=== PATIENT | female | born 1930 | race Caucasian/White ===

== ENCOUNTER 2017-03-04 11:04 | Inpatient (IN) | payer MEDICARE ==
[~2017-03-04] VITALS: Ht 167.6 cm; Wt 106.6 kg
[2017-03-04] MEDS ORDERED: ONDANSETRON HCL INJ 2 MG/ML VIAL IV STA (13:26)
[2017-03-04] MEDS ORDERED: SODIUM CHLORIDE 0.9% 1000ML 1,000 ML IV STA (13:26)
[2017-03-04] MEDS ORDERED: MORPHINE SULFATE 2 MG/ML SYR IV STA (13:26)
[2017-03-04 13:55] LABS: BASOPHILS % 0.2 % (0.0-1.0); EOSINOPHILS # (AUTO) 0.1 (0.0-0.4); EOSINOPHILS % 0.6 % (0.0-6.0); HEMATOCRIT 34.5 % (34.2-44.1); HEMOGLOBIN 10.8 g/dL (12.0-16.0); LYMPHOCYTES # (AUTO) 0.8 (1.0-3.2); MEAN CORPUSCULAR HEMOGLOBIN 30.3 pg (28-32); MEAN CORPUSCULAR HGB CONC 31.3 g/dL (31-35); MEAN CORPUSCULAR VOLUME 96.6 fL (81-99); MONOCYTES # (AUTO) 0.8 (0.2-0.8); MONOCYTES % 8.8 % (4.4-11.3); NEUTROPHILS % 80.8 % (38.7-80.0); PLATELET COUNT 171 x10e3/uL (140-360); RED BLOOD COUNT 3.57 x10e6/uL (3.6-5.1); RED CELL DISTRIBUTION WIDTH 13.2 % (11.7-14.4)
[2017-03-04 14:11] LABS: INR 1.39; PROTHROMBIN TIME 17.8 seconds (11.9-14.5)
[2017-03-04 14:17] LABS: ALBUMIN 2.9 g/dL (3.5-5.0); ALBUMIN/GLOBULIN RATIO 0.5 (0.8-2.0); ANION GAP 15.9 mmol/L (8-16); CALCIUM 9.2 mg/dL (8.4-10.2); CREATININE, SERUM 1.33 mg/dL (0.57-1.11); POTASSIUM 5.9 mmol/L (3.5-5.1)
[2017-03-04 14:35] LABS: BILIRUBIN,URINE NEGATIVE (NEGATIVE); CLARITY,URINE HAZY (CLEAR); COLOR,URINE YELLOW (YELLOW); KETONES,URINE 1+ (NEGATIVE); LEUKOCYTE ESTERASE ,URINE 1+ (NEGATIVE); NITRITE,URINE POSITIVE (NEGATIVE); PROTEIN,URINE DIPSTICK 1+ (NEGATIVE); URINE UROBILINOGEN 0.2 mg/dL (0.2 - 1)
[2017-03-04 14:42] LABS: BACTERIA,URINE MANY /HPF; EPITHELIAL CELLS,URINE FEW /LPF
--- NOTE | 2017-03-04 14:46 | Diagnostic Imaging Report ---
Portable chest x-ray CPT code 18263 INDICATION: Cough, fever COMPARISON: None FINDINGS: Frontal view of the chest obtained at 1350 hours. The cardiac silhouette is enlarged. The pulmonary arteries are enlarged. The central pulmonary vascular marking are prominent. The lungs demonstrate no mass or infiltrate. There is eventration of the right diaphragm. The costophrenic angles are sharp. There is no pneumothorax. The osseous structures are intact and normal in morphology. IMPRESSION: 1. Cardiomegaly and pulmonary artery enlargement suggestive of pulmonary artery hypertension. 2. No pulmonary infiltrates. 3. 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 Signed by: Dr. Adán Trammell MD on 03/04/2017 2:42 PM
[2017-03-04] MEDS ORDERED: CEFTRIAXONE SOD 1 GM VIAL IV ONE (15:15)
[2017-03-04] MEDS ORDERED: SOD POLYSTYRENE SULFONATE SUSP 15 GM/60 ML BTL PO ONE (15:45)
[2017-03-04] MEDS ORDERED: DEXTROSE 50% SYRINGE 50 ML IV PRN (15:45)
[2017-03-04] MEDS ORDERED: CEFTRIAXONE SOD 1 GM VIAL IV SCH (15:45)
[2017-03-04] MEDS: ALBUTEROL/IPRATROPIUM 3 ML NEB NEB SCH ×2 (16:20→19:32)
[2017-03-04] MEDS: AZITHROMYCIN 500MG/NS 250 ML 250 ML IV SCH (16:22)
[2017-03-04] MEDS: INSULIN REGULAR, HUMAN 100 UNIT/1 ML 3ML VIAL SQ SCH ×2 (16:22→21:00)
[2017-03-04] MEDS: SODIUM CHLORIDE 0.9% 1000ML 1,000 ML IV SCH (16:22)
[2017-03-04] MEDS ORDERED: AMLODIPINE BESYL5 MG PO (16:27)
[2017-03-04] MEDS ORDERED: COMBIVENT RESPIM4 GM IH (16:27)
[2017-03-04] MEDS ORDERED: NYSTATIN1 EAC1 (16:27)
[2017-03-04] MEDS ORDERED: NORCO 7.5-3251 EACH PO (16:27)
[2017-03-04] MEDS ORDERED: XARELTO10 MG PO (16:27)
[2017-03-04] MEDS ORDERED: LEVOTHYROXINE100 MCG PO (16:27)
[2017-03-04] MEDS ORDERED: GABAPENTIN400 MG PO (16:27)
[2017-03-04] MEDS ORDERED: GLIPIZIDE5 MG PO (16:27)
[2017-03-04] MEDS ORDERED: DOXAZOSIN MESYLA2 MG PO (16:27)
[2017-03-04] MEDS ORDERED: VENLAFAXINE H37.5 MG PO (16:27)
[2017-03-04] MEDS ORDERED: CARVEDILOL12.5 MG PO (16:27)
[2017-03-04] MEDS ORDERED: CYCLOBENZAPRINE10 MG PO (16:27)
[2017-03-04] MEDS ORDERED: JANUVIA100 MG PO (16:27)
[2017-03-04] MEDS ORDERED: ENULOSE10 GM/15 M (16:27)
[2017-03-04] MEDS ORDERED: FUROSEMIDE40 MG PO (16:27)
[2017-03-04] MEDS: OSELTAMIVIR PHOSPHATE 75 MG CAP PO SCH (16:31)
[2017-03-04] MEDS ORDERED: ACETAMINOPHEN 325 MG TAB PO PRN (16:45)
[2017-03-04 17:05] VITALS: BP 119/57
[2017-03-04 17:23] VITALS: BP 119/57
[2017-03-04 17:27] VITALS: BP 119/57
[2017-03-04] MEDS: ONDANSETRON HCL INJ 2 MG/ML VIAL IV PRN (18:35)
[2017-03-04] MEDS: MORPHINE SULFATE 5 MG/ML VIAL IV PRN (18:35)
[2017-03-04 20:47] VITALS: BP 129/58
[2017-03-05] VITALS (7 sets, daily range): BP systolic 93–129; BP diastolic 52–66
[2017-03-05] MEDS: ALBUTEROL/IPRATROPIUM 3 ML NEB NEB SCH ×4 (00:30→19:00)
[2017-03-05] MEDS: ONDANSETRON HCL INJ 2 MG/ML VIAL IV PRN (01:05)
[2017-03-05] MEDS: MORPHINE SULFATE 5 MG/ML VIAL IV PRN (01:05)
[2017-03-05] MEDS: SODIUM CHLORIDE 0.9% 1000ML 1,000 ML IV SCH (01:05)
[2017-03-05 06:27] LABS: BASOPHILS % 0.2 % (0.0-1.0); EOSINOPHILS # (AUTO) 0.1 (0.0-0.4); EOSINOPHILS % 1.7 % (0.0-6.0); HEMATOCRIT 31.8 % (34.2-44.1); HEMOGLOBIN 9.5 g/dL (12.0-16.0); LYMPHOCYTES % 17.3 % (18.0-39.1); MEAN CORPUSCULAR HEMOGLOBIN 29.5 pg (28-32); MEAN CORPUSCULAR HGB CONC 29.9 g/dL (31-35); MEAN CORPUSCULAR VOLUME 98.8 fL (81-99); MONOCYTES # (AUTO) 0.8 (0.2-0.8); MONOCYTES % 12.5 % (4.4-11.3); NEUTROPHILS # (AUTO) 4.1 (2.1-6.9); PLATELET COUNT 155 x10e3/uL (140-360); RED BLOOD COUNT 3.22 x10e6/uL (3.6-5.1); RED CELL DISTRIBUTION WIDTH 13.2 % (11.7-14.4)
[2017-03-05] MEDS: INSULIN REGULAR, HUMAN 100 UNIT/1 ML 3ML VIAL SQ SCH ×4 (07:30→21:00)
[2017-03-05 07:33] LABS: ANION GAP 13.1 mmol/L (8-16); CALCIUM 8.1 mg/dL (8.4-10.2); CREATININE, SERUM 1.25 mg/dL (0.57-1.11); POTASSIUM 4.1 mmol/L (3.5-5.1)
[2017-03-05] MEDS ORDERED: RIVAROXABAN 10 MG TABLET PO SCH (09:00)
[2017-03-05] MEDS ORDERED: GLIPIZIDE 5 MG TAB PO SCH (09:00)
[2017-03-05] MEDS: PANTOPRAZOLE SOD 40 MG TABEC PO SCH (09:10)
[2017-03-05] MEDS: CARVEDILOL 12.5 MG TAB PO SCH ×2 (09:11→22:03)
[2017-03-05] MEDS: SITAGLIPTIN 100 MG TAB PO SCH (09:11)
[2017-03-05] MEDS: VENLAFAXINE HCL 37.5 MG TAB PO SCH (09:11)
[2017-03-05] MEDS: LEVOTHYROXINE SODIUM 100 MCG TAB PO SCH (09:11)
[2017-03-05] MEDS: AMLODIPINE BESYLATE 5 MG TAB PO SCH (09:12)
[2017-03-05] MEDS: OSELTAMIVIR PHOSPHATE 75 MG CAP PO SCH ×2 (09:12→17:00)
[2017-03-05] MEDS: GABAPENTIN 400 MG CAP PO SCH (09:12)
[2017-03-05] MEDS: HYDROCODONE/APAP 7.5MG-325MG 1 EA TAB PO PRN (09:12)
[2017-03-05] MEDS ORDERED: FUROSEMIDE 40 MG TAB PO SCH (15:30)
[2017-03-05] MEDS: GUAIFENESIN 600MG/DEXTROMETHORPHAN 30MG TABSR PO SCH (16:00)
[2017-03-05] MEDS: FUROSEMIDE 20 MG TAB PO SCH (16:00)
[2017-03-05] MEDS: AZITHROMYCIN 500MG/NS 250 ML 250 ML IV SCH (16:15)
[2017-03-05] MEDS: METOCLOPRAMIDE HCL 10 MG TAB PO SCH (16:30)
--- NOTE | 2017-03-05 16:36 | History and Physical ---
PRIMARY CARE PROVIDER: Dr. Satish Guzman. CHIEF COMPLAINT: Shortness of breath and cough. HISTORY OF PRESENT ILLNESS: Ms. Tobar is an 86-year-old lady who has had increasing shortness of breath and cough over the last 2 days. She was just recently discharged from rehab after 30 days in SNF. She was discharged 2 days ago. REVIEW OF SYSTEMS: She denies fever, chills or weight loss. She denies sinus congestion or sore throat. She denies chest pain or palpitations. She has shortness of breath and cough with some sputum production. She denies abdominal pain, nausea and vomiting. She denies dysuria or flank pain. She denies rash or pruritus. She has pain in the left hip. She denies bleeding or bruising. She denies headache, vertigo or loss of consciousness. She denies depression, agitation, homicidal or suicidal ideation. PAST MEDICAL HISTORY: Significant for longstanding hypertension, type 2 diabetes, chronic atrial fibrillation, chronic systolic heart failure, chronic kidney disease stage 3, and asthma/COPD. She has a distant history of cholecystectomy. SHE HAS A STATED ALLERGY TO PENICILLIN AND NONSTEROIDAL ANTI-INFLAMMATORY DRUGS. FAMILY HISTORY: Remarkable for hypertension and diabetes. SOCIAL HISTORY: The patient is . She does not smoke, drink or use illegal drugs, and she is generally independently functioning although she uses a wheelchair mostly for transportation and she does require some assistance and supervision from a provider. PHYSICAL EXAMINATION: PSYCHIATRIC: She is alert and oriented times 3 with normal mood and affect. CONSTITUTIONAL: She is morbidly obese. Is in no acute distress. VITAL SIGNS: Blood pressure 110/61. Pulse 84 and regular. Respiratory rate 17. O2 sat 94%. Temperature 97.2. Her initial temperature on admission was 99.7, her initial blood pressure on admission 104/74 and her pulse rate on admission 120 and irregular. HEENT: Her head is atraumatic. Her eyes are anicteric with clear conjunctivae. Ears and nares are without erythema or discharge. Oropharynx is clear. NECK: Is supple with no mass or thyromegaly. LYMPHATIC SYSTEM: She has no palpable cervical, axillary or inguinal adenopathy. CARDIOVASCULAR: Her heart has an irregular but fairly regular rhythm with no murmur or extra heart sound. She has no carotid bruit. She has a trace of bipedal edema and weak dorsal pedal pulses. RESPIRATORY: Lungs reveal some coarse breath sounds and a bronchitic cough. There is no wheezing, and she has normal respiratory effort. GASTROINTESTINAL: Her abdomen is soft without organomegaly, masses or tenderness. She has normal bowel sounds present. CUTANEOUS: Her skin is warm and dry to the touch with no rash or skin breakdown. MUSCULOSKELETAL: Her joints are in normal alignment without erythema or swelling. She has no calf tenderness. NEUROLOGIC: Exam is nonfocal with intact cranial nerves and no motor or sensory deficits. DIAGNOSTIC STUDIES: Chest x-ray shows cardiomegaly, pulmonary hypertension based on enlarged pulmonary arteries and elevated right hemidiaphragm. Her urine contained 6-10 red cells, 11-20 white cells, and the culture is growing 50 to 100 thousand gram-negative rods, and her influenza A screen was positive. Her TSH is 0.969. Her chemistry shows a potassium of 5.9. The rest of her electrolytes are normal. CO2 30. Glucose 170. Creatinine 1.33, BUN 23 for a GFR of 38, and calcium is 9.2. After some Kayexalate and overnight hydration, chemistry shows normal electrolytes. CO2 29. Creatinine 1.25, BUN 25 for a GFR of 41. Calcium is 8.1. Glucose is 78. Transaminases, bilirubin and alk phos are normal. CBC shows a white count of 6.01 with a normal differential, hemoglobin 9.5, hematocrit 31.8 and platelet count 155,000. IMPRESSION AND PLAN: 1. Generalized weakness most likely due to the upper respiratory infection and flu. Will get PT/OT involved to start the patient immediately on some therapy so she does not get weak while she is here in the hospital. After being in rehab for 30 days, we do not want to lose any ground on that. 2. Upper respiratory infection/influenza. The patient has been started on Tamiflu 75 twice a day for 5 days. We will also give the patient IV Zithromax and Rocephin as well as nebulizer treatments and Mucinex DM. 3. Diabetic foot ulcer left foot. The patient has been followed by Podiatry. Will consult them and continue wound care. 4. Hypertension complicated by coronary artery disease, congestive heart failure and chronic kidney disease stage 3. The patient will continue on Norvasc, Coreg and Lasix. Note she has chronic systolic CHF. 5. Type 2 diabetes complicated by chronic kidney disease stage 3. Will continue her Januvia plus sliding-scale insulin. 6. Chronic atrial fibrillation. Will continue the Coreg and Xarelto. 7. For prophylaxis, the patient is on Protonix for GI prophylaxis and Xarelto for her AFib and for DVT and stroke prophylaxis. Job#: [id number] EV
--- NOTE | 2017-03-05 18:46 | Consultation ---
DATE OF CONSULTATION: March 05, 2017 REASON FOR CONSULTATION: Multiple ulcerations to both lower extremities with the patient being a type 2 diabetic. HISTORY OF PRESENT ILLNESS: This is an 86-year-old white lady who was seen at the bedside accompanied by some somewhat confused secondary to just receiving a pain medication. Patient was admitted secondary to increased shortness of breath and flu-like symptoms. Has had multiple ulcerations to both lower extremities that developed from being at the rehab center from being bedbound. CURRENT MEDICATIONS: Not listed in the chart. ALLERGIES: PENICILLIN AND NONSTEROIDAL ANTI-INFLAMMATORIES. PAST SURGICAL HISTORY: Unobtainable. FAMILY HISTORY: Remarkable for diabetes and hypertension. SOCIAL HISTORY: No smoking, drinking or drug use according to the son. REVIEW OF SYSTEMS: Also unobtainable. PHYSICAL EXAMINATION VITALS: Afebrile, pulse rate 97, respirations 17, blood pressure 112/56, and O2 saturation 98%. PODIATRIC PHYSICAL EXAMINATION VASCULAR: Pedal pulses, dorsalis pedis and posterior tibial arteries are palpable, but diminished. CFT of 12 toes less than 4 seconds. Skin temperature warm to touch. NEUROLOGICAL: Reveals some loss of protective sensation when utilizing Up-Toi monofilament. Muscle mass is symmetrical and wasted. Muscle strength 3-4/5 to all muscle groups. DERMATOLOGICAL: Shows a grade 2 ulcer of the lateral aspect of the right talotibial joint underlying the lateral aspect of the fibula. No bone or tendon exposed. Measuring approximately 1 to 1.5 cm in diameter with granular fibrotic base noted. Had an ulcer to the posterior plantar aspect of the left heel measuring 2 to 3.5 cm in diameter with superficial necrosis noted. An ulceration of the lateral aspect of the 5th metatarsophalangeal joint with periwound cellulitis present of 1.5 to 2 cm in diameter. ASSESSMENT: Multiple grade 1 and 2 ulcerations to both lower extremities with diabetic neuropathy. PLAN: Will start with Bactroban ointment followed by Xeroform dressing. Continue pillow under calf to offload as best as possible. Continue 1 g of ceftriaxone every 24 hours. Will continue to follow. LABS: Noted. Has a white blood cell count of 6, hemoglobin 9.5, hematocrit 31.8 with a platelet count of 155,000. Job#: [id number] RI
[2017-03-05] MEDS: CEFTRIAXONE SOD 1 GM VIAL IV SCH (19:09)
[2017-03-06] VITALS (9 sets, daily range): BP systolic 101–127; BP diastolic 50–72
[2017-03-06] MEDS: GUAIFENESIN 600MG/DEXTROMETHORPHAN 30MG TABSR PO SCH ×4 (00:01→17:26)
[2017-03-06] MEDS: HYDROCODONE/APAP 7.5MG-325MG 1 EA TAB PO PRN (00:07)
[2017-03-06] MEDS: ALBUTEROL/IPRATROPIUM 3 ML NEB NEB SCH ×4 (00:30→19:40)
[2017-03-06 06:52] LABS: BASOPHILS % 0.2 % (0.0-1.0); EOSINOPHILS # (AUTO) 0.2 (0.0-0.4); EOSINOPHILS % 4.2 % (0.0-6.0); HEMATOCRIT 30.3 % (34.2-44.1); HEMOGLOBIN 9.1 g/dL (12.0-16.0); LYMPHOCYTES # (AUTO) 1.4 (1.0-3.2); MEAN CORPUSCULAR HEMOGLOBIN 29.4 pg (28-32); MEAN CORPUSCULAR VOLUME 98.1 fL (81-99); MONOCYTES # (AUTO) 0.6 (0.2-0.8); MONOCYTES % 10.5 % (4.4-11.3); NEUTROPHILS # (AUTO) 3.2 (2.1-6.9); NEUTROPHILS % 59.5 % (38.7-80.0); PLATELET COUNT 153 x10e3/uL (140-360); RED BLOOD COUNT 3.09 x10e6/uL (3.6-5.1); RED CELL DISTRIBUTION WIDTH 13.2 % (11.7-14.4)
[2017-03-06 07:10] LABS: CALCIUM 7.9 mg/dL (8.4-10.2); CREATININE, SERUM 1.37 mg/dL (0.57-1.11); MAGNESIUM 1.7 MG/DL (1.3-2.1)
[2017-03-06 07:28] LABS: THYROID STIMULATING HORMONE 1.633 uIU/mL (0.350-4.940)
[2017-03-06] MEDS: LEVOTHYROXINE SODIUM 100 MCG TAB PO SCH (07:30)
[2017-03-06] MEDS: INSULIN REGULAR, HUMAN 100 UNIT/1 ML 3ML VIAL SQ SCH ×4 (07:30→20:36)
[2017-03-06] MEDS: AMLODIPINE BESYLATE 5 MG TAB PO SCH (09:00)
[2017-03-06] MEDS ORDERED: COLLAGENASE OINTMENT 30 GM TUBE TP SCH (09:00)
--- NOTE | 2017-03-06 09:34 | Progress Note ---
DATE: March 06, 2017 SUBJECTIVE: Patient seen at bedside, accompanied by daughter. Doing well. Denies any history of fever, chills, nausea, vomiting. OBJECTIVE: VITAL SIGNS: Afebrile. Pulse rate 90, respirations 16, blood pressure 111/59, O2 saturation at 96%. EXTREMITIES: Ulcerations to both lower extremities improving. Decreased cellulitis. Decreased periwound cellulitis. No drainage. Negative foul smell. LABS: Noted. Has a white blood cell count of 5.4, hemoglobin 9.1, hematocrit 30.3 with a platelet count 153,000. ASSESSMENT: Multiple grade 1 and 2 ulcers to both lower extremities with diabetic neuropathy. PLAN: Will continue Bactroban ointment, followed by light dry dressing. Continue offloading with pillow under calves. Will continue to follow. Job#: [id number]
[2017-03-06] MEDS: OSELTAMIVIR PHOSPHATE 75 MG CAP PO SCH ×2 (09:42→17:26)
[2017-03-06] MEDS: SITAGLIPTIN 100 MG TAB PO SCH (09:42)
[2017-03-06] MEDS: PANTOPRAZOLE SOD 40 MG TABEC PO SCH (09:42)
[2017-03-06] MEDS: GABAPENTIN 400 MG CAP PO SCH (09:42)
[2017-03-06] MEDS: RIVAROXABAN 15 MG TABLET PO SCH (09:42)
[2017-03-06] MEDS: CARVEDILOL 12.5 MG TAB PO SCH ×2 (09:42→20:39)
[2017-03-06] MEDS: GLIPIZIDE 5 MG TAB PO SCH (09:42)
[2017-03-06] MEDS: METOCLOPRAMIDE HCL 10 MG TAB PO SCH ×2 (09:42→15:50)
[2017-03-06] MEDS: VENLAFAXINE HCL 37.5 MG TAB PO SCH (09:42)
[2017-03-06] MEDS ORDERED: POTASSIUM CHLORIDE 20 MEQ TAB CR PO STA (10:09)
[2017-03-06] MEDS ORDERED: FUROSEMIDE INJ 10 MG/ML 2 ML VIAL IV ONE (10:15)
[2017-03-06] MEDS: FUROSEMIDE 20 MG TAB PO SCH (11:56)
[2017-03-06] MEDS: COLLAGENASE 5 GM TUBE TP SCH (15:34)
[2017-03-06] MEDS: CEFTRIAXONE SOD 1 GM VIAL IV SCH (15:50)
[2017-03-06] MEDS: AZITHROMYCIN 500MG/NS 250 ML 250 ML IV SCH (15:50)
[2017-03-06] MEDS ORDERED: DEXTROSE 5% 1000ML 1,000 ML IV ONE (22:15)
[2017-03-07] VITALS (7 sets, daily range): BP systolic 116–124; BP diastolic 65–87
[2017-03-07] MEDS: GUAIFENESIN 600MG/DEXTROMETHORPHAN 30MG TABSR PO SCH ×5 (00:33→23:56)
[2017-03-07] MEDS: ALBUTEROL/IPRATROPIUM 3 ML NEB NEB SCH ×2 (01:12→06:45)
[2017-03-07] MEDS: PANTOPRAZOLE SOD 40 MG TABEC PO SCH ×3 (07:30→14:16)
[2017-03-07] MEDS: GLIPIZIDE 5 MG TAB PO SCH (07:30)
[2017-03-07] MEDS: INSULIN REGULAR, HUMAN 100 UNIT/1 ML 3ML VIAL SQ SCH ×4 (07:30→20:43)
[2017-03-07 07:57] LABS: BASOPHILS % 0.2 % (0.0-1.0); EOSINOPHILS # (AUTO) 0.2 (0.0-0.4); HEMATOCRIT 32.5 % (34.2-44.1); HEMOGLOBIN 9.9 g/dL (12.0-16.0); LYMPHOCYTES # (AUTO) 1.5 (1.0-3.2); LYMPHOCYTES % 25.1 % (18.0-39.1); MEAN CORPUSCULAR HEMOGLOBIN 29.6 pg (28-32); MEAN CORPUSCULAR HGB CONC 30.5 g/dL (31-35); MEAN CORPUSCULAR VOLUME 97.3 fL (81-99); MONOCYTES # (AUTO) 0.5 (0.2-0.8); MONOCYTES % 8.3 % (4.4-11.3); NEUTROPHILS # (AUTO) 3.8 (2.1-6.9); NEUTROPHILS % 61.9 % (38.7-80.0); PLATELET COUNT 166 x10e3/uL (140-360); RED BLOOD COUNT 3.34 x10e6/uL (3.6-5.1); RED CELL DISTRIBUTION WIDTH 13.1 % (11.7-14.4)
[2017-03-07 08:35] LABS: ANION GAP 12.1 mmol/L (8-16); CALCIUM 8.2 mg/dL (8.4-10.2); CREATININE, SERUM 1.31 mg/dL (0.57-1.11); POTASSIUM 4.1 mmol/L (3.5-5.1)
[2017-03-07] MEDS: METOCLOPRAMIDE HCL 10 MG TAB PO SCH ×3 (08:45→17:34)
[2017-03-07] MEDS: VENLAFAXINE HCL 37.5 MG TAB PO SCH ×2 (08:45→14:16)
[2017-03-07] MEDS: LEVOTHYROXINE SODIUM 100 MCG TAB PO SCH ×2 (08:45→14:16)
[2017-03-07] MEDS: CARVEDILOL 12.5 MG TAB PO SCH ×3 (08:45→20:45)
[2017-03-07] MEDS: COLLAGENASE 5 GM TUBE TP SCH ×2 (08:46→10:36)
[2017-03-07] MEDS: RIVAROXABAN 15 MG TABLET PO SCH ×2 (08:46→14:16)
[2017-03-07] MEDS: SITAGLIPTIN 100 MG TAB PO SCH (08:46)
[2017-03-07] MEDS: AMLODIPINE BESYLATE 5 MG TAB PO SCH ×2 (08:46→14:16)
[2017-03-07] MEDS: OSELTAMIVIR PHOSPHATE 75 MG CAP PO SCH ×3 (08:46→20:44)
[2017-03-07] MEDS: GABAPENTIN 400 MG CAP PO SCH ×2 (08:46→14:16)
[2017-03-07] MEDS ORDERED: POTASSIUM CHLORIDE 20 MEQ TAB CR PO STA (09:09)
[2017-03-07] MEDS ORDERED: ALBUTEROL/IPRATROPIUM 3 ML NEB NEB PRN (09:15)
[2017-03-07] MEDS ORDERED: FUROSEMIDE INJ 10 MG/ML 4 ML VIAL IV ONE (09:15)
--- NOTE | 2017-03-07 09:41 | Progress Note ---
DATE: March 07, 2017 SUBJECTIVE: Patient seen at bedside accompanied by daughter, having difficulty breathing secondary to mucus. OBJECTIVE: Vitals: Afebrile. Pulse rate 103. Respirations 20. Blood pressure 120/84. O2 saturation 99%. Ulcerations to both lower extremities improving slowly. Decreased periwound cellulitis. Negative foul smell. Pedal pulses are palpable. Skin temperature warm to touch. ASSESSMENT: Multiple grade-2 ulcerations to both lower extremities healing slowly. PLAN: Will continue Bactroban followed by dilute wet-to-dry Betadine and dry dressing. Continue offloading. Continue IV antibiotics. Will continue to follow. Job#: [id number]
[2017-03-07] MEDS: ACETYLCYSTEINE 20% INHAL SOLN 30 ML VIAL INH SCH ×4 (11:30→23:30)
[2017-03-07] MEDS ORDERED: LEVALBUTEROL HCL SOLN NEBU 0.63 MG/3 ML NEB INH PRN (12:00)
[2017-03-07] MEDS: LEVALBUTEROL HCL SOLN NEBU 0.63 MG/3 ML NEB INH SCH ×3 (12:38→23:00)
[2017-03-07] MEDS ORDERED: BISACODYL 5 MG TAB EC PO ONE (13:45)
[2017-03-07] MEDS ORDERED: ALBUTEROL/IPRATROPIUM 3 ML NEB NEB SCH (14:00)
--- NOTE | 2017-03-07 14:10 | Diagnostic Imaging Report ---
PROCEDURE: CHEST SINGLE (PORTABLE) COMPARISON: 03/04/2017. INDICATIONS: INFLUENZA, RESPIRATORY DISTRESS FINDINGS: Lungs remain well-inflated and without focal consolidation, pleural effusion, or pneumothorax. Stable cardiomediastinal contour with mild enlargement of the cardiac silhouette and central pulmonary arteries. No acute osseous abnormality. CONCLUSION: Stable cardiomegaly with enlargement of the central pulmonary arteries. No new consolidations. Dictated by: Parish Gamez M.D. on 03/07/2017 at 14:18 Electronically approved by: Parish Gamez M.D. on 03/07/2017 at 14:18
[2017-03-07] MEDS: FUROSEMIDE 20 MG TAB PO SCH (14:16)
[2017-03-07] MEDS: CEFTRIAXONE SOD 1 GM VIAL IV SCH (15:14)
[2017-03-07] MEDS: AZITHROMYCIN 500MG/NS 250 ML 250 ML IV SCH (16:00)
[2017-03-07] MEDS: DOCUSATE SODIUM LIQD 100 MG/10 ML UDC NG SCH (17:34)
[2017-03-07 22:14] LABS: BILIRUBIN,URINE NEGATIVE (NEGATIVE); CLARITY,URINE HAZY (CLEAR); COLOR,URINE YELLOW (YELLOW); KETONES,URINE NEGATIVE (NEGATIVE); LEUKOCYTE ESTERASE ,URINE 2+ (NEGATIVE); NITRITE,URINE NEGATIVE (NEGATIVE); URINE UROBILINOGEN 0.2 mg/dL (0.2 - 1)
[2017-03-07 22:16] LABS: PROTEIN,URINE DIPSTICK 2+ (NEGATIVE)
[2017-03-07 22:26] LABS: BACTERIA,URINE MANY /HPF; RBC,URINE 21-50 /HPF (0-5); WBC,URINE (MAN) >50 /HPF (0-5)
[2017-03-08] VITALS (7 sets, daily range): BP systolic 124–132; BP diastolic 69–79
[2017-03-08] MEDS: LEVALBUTEROL HCL SOLN NEBU 0.63 MG/3 ML NEB INH SCH ×5 (02:15→18:49)
[2017-03-08] MEDS: ACETYLCYSTEINE 20% INHAL SOLN 30 ML VIAL INH SCH ×6 (03:30→18:49)
[2017-03-08] MEDS: GUAIFENESIN 600MG/DEXTROMETHORPHAN 30MG TABSR PO SCH ×4 (05:40→23:29)
[2017-03-08] MEDS: TRAMADOL HCL 50 MG TAB PO PRN (05:45)
[2017-03-08 06:25] LABS: BASOPHILS % 0.3 % (0.0-1.0); EOSINOPHILS # (AUTO) 0.2 (0.0-0.4); EOSINOPHILS % 2.5 % (0.0-6.0); HEMATOCRIT 32.8 % (34.2-44.1); HEMOGLOBIN 10.2 g/dL (12.0-16.0); LYMPHOCYTES # (AUTO) 1.4 (1.0-3.2); LYMPHOCYTES % 22.7 % (18.0-39.1); MEAN CORPUSCULAR HEMOGLOBIN 29.6 pg (28-32); MEAN CORPUSCULAR HGB CONC 31.1 g/dL (31-35); MEAN CORPUSCULAR VOLUME 95.1 fL (81-99); MONOCYTES # (AUTO) 0.5 (0.2-0.8); MONOCYTES % 8.4 % (4.4-11.3); NEUTROPHILS # (AUTO) 3.9 (2.1-6.9); NEUTROPHILS % 65.8 % (38.7-80.0); PLATELET COUNT 176 x10e3/uL (140-360); RED BLOOD COUNT 3.45 x10e6/uL (3.6-5.1); RED CELL DISTRIBUTION WIDTH 12.9 % (11.7-14.4)
[2017-03-08 06:46] LABS: ANION GAP 14.7 mmol/L (8-16); CALCIUM 8.3 mg/dL (8.4-10.2); CREATININE, SERUM 1.08 mg/dL (0.57-1.11); MAGNESIUM 1.2 MG/DL (1.3-2.1); POTASSIUM 3.7 mmol/L (3.5-5.1)
[2017-03-08] MEDS: INSULIN REGULAR, HUMAN 100 UNIT/1 ML 3ML VIAL SQ SCH ×4 (07:30→20:42)
[2017-03-08] MEDS ORDERED: FUROSEMIDE INJ 10 MG/ML 4 ML VIAL IV SCH (08:00)
[2017-03-08] MEDS: PANTOPRAZOLE SOD 40 MG TABEC PO SCH ×2 (08:11→16:29)
[2017-03-08] MEDS: METOCLOPRAMIDE HCL 10 MG TAB PO SCH ×2 (08:11→16:29)
[2017-03-08] MEDS: LEVOTHYROXINE SODIUM 100 MCG TAB PO SCH (08:11)
[2017-03-08] MEDS: GLIPIZIDE 5 MG TAB PO SCH (08:11)
[2017-03-08] MEDS: DOCUSATE SODIUM LIQD 100 MG/10 ML UDC NG SCH ×2 (08:12→16:29)
[2017-03-08] MEDS: FUROSEMIDE INJ 10 MG/ML 4 ML VIAL IV SCH ×3 (08:12→21:50)
[2017-03-08] MEDS: SITAGLIPTIN 100 MG TAB PO SCH (08:12)
[2017-03-08] MEDS: AMLODIPINE BESYLATE 5 MG TAB PO SCH (08:12)
[2017-03-08] MEDS: CARVEDILOL 12.5 MG TAB PO SCH ×2 (08:12→20:42)
[2017-03-08] MEDS: RIVAROXABAN 15 MG TABLET PO SCH (08:12)
[2017-03-08] MEDS: OSELTAMIVIR PHOSPHATE 75 MG CAP PO SCH ×2 (08:12→20:41)
[2017-03-08] MEDS: GABAPENTIN 400 MG CAP PO SCH (08:12)
[2017-03-08] MEDS: VENLAFAXINE HCL 37.5 MG TAB PO SCH (08:12)
[2017-03-08] MEDS: COLLAGENASE 5 GM TUBE TP SCH (08:12)
--- NOTE | 2017-03-08 09:25 | Progress Note ---
DATE: March 08, 2017 SUBJECTIVE: Patient seen at bedside, breathing a little bit better accompanied by daughter. OBJECTIVE: VITAL SIGNS: Afebrile. Pulse rate 90, respirations 16, blood pressure 124/79, O2 saturation 99%. EXTREMITIES: Ulcerations to both lower extremities healing. Decreased periwound cellulitis to dry. No drainage. ASSESSMENT: Multiple grade 2 ulcers healing with diabetic neuropathy. PLAN: Will continue offloading. Continue local wound care. Will continue to follow. Job#: [id number]
[2017-03-08] MEDS ORDERED: FUROSEMIDE 20 MG TAB PO SCH (12:00)
[2017-03-08] MEDS ORDERED: FUROSEMIDE 40 MG TAB PO SCH (12:00)
[2017-03-08] MEDS ORDERED: HYDROCODONE/CHLORPHENIRAMINE 5 ML LIQCR PO SCH (13:15)
[2017-03-08] MEDS ORDERED: LORAZEPAM 0.5 MG TAB PO PRN (13:30)
[2017-03-08] MEDS: TRIMETHOPRIM/SULFAMETHOXAZOLE 160-800 MG TAB PO SCH ×2 (14:11→20:41)
--- NOTE | 2017-03-08 14:30 | Diagnostic Imaging Report ---
PROCEDURE: A single AP view of the chest. COMPARISON: Chest x-ray 03/07/17 and 03/04/2017 INDICATIONS: UPPER RESPIRATORY INFECTION FINDINGS: Frontal image obtained at 1304 hrs. Lines/tubes: None. Lungs: Lung volumes are low. There is a small focus of subsegmental atelectasis or infiltrate inferior right upper lobe. This is stable compared to the most recent prior exam. Crowding of the lung markings in the left lung bases suggestive of atelectasis. Pulmonary vascular markings are prominent but stable. Pleura: There is no pleural effusion or pneumothorax. Heart and mediastinum: Stable cardiomegaly and pulmonary artery enlargement. There is suggestion of calcified hilar lymph nodes. Bones: No acute bony abnormality. IMPRESSION: Inferior right upper lobe subsegmental atelectasis or infiltrate is stable. Stable cardiomegaly. Dictated by: Adán Trammell M.D. on 03/08/2017 at 14:38 Electronically approved by: Adán Trammell M.D. on 03/08/2017 at 14:38
[2017-03-08] MEDS: CEFTRIAXONE SOD 1 GM VIAL IV SCH (15:47)
[2017-03-08] MEDS: AZITHROMYCIN 500MG/NS 250 ML 250 ML IV SCH (16:29)
[2017-03-08] MEDS: BENZONATATE 100 MG CAP PO SCH ×2 (17:47→23:29)
[2017-03-09] VITALS (7 sets, daily range): BP systolic 102–155; BP diastolic 54–98
[2017-03-09] MEDS: HYDROCODONE/APAP 7.5MG-325MG 1 EA TAB PO PRN (01:02)
[2017-03-09] MEDS: LEVALBUTEROL HCL SOLN NEBU 0.63 MG/3 ML NEB INH SCH ×5 (02:06→23:00)
[2017-03-09] MEDS: ACETYLCYSTEINE 20% INHAL SOLN 30 ML VIAL INH SCH ×6 (02:06→23:30)
[2017-03-09] MEDS: GUAIFENESIN 600MG/DEXTROMETHORPHAN 30MG TABSR PO SCH ×3 (05:49→17:49)
[2017-03-09] MEDS: BENZONATATE 100 MG CAP PO SCH ×3 (05:49→17:58)
[2017-03-09] MEDS: FUROSEMIDE INJ 10 MG/ML 4 ML VIAL IV SCH ×4 (06:16→22:41)
[2017-03-09 07:19] LABS: BASOPHILS % 0.1 % (0.0-1.0); EOSINOPHILS # (AUTO) 0.1 (0.0-0.4); EOSINOPHILS % 1.1 % (0.0-6.0); HEMATOCRIT 34.6 % (34.2-44.1); HEMOGLOBIN 10.6 g/dL (12.0-16.0); LYMPHOCYTES # (AUTO) 1.6 (1.0-3.2); LYMPHOCYTES % 20.8 % (18.0-39.1); MEAN CORPUSCULAR HEMOGLOBIN 29.2 pg (28-32); MEAN CORPUSCULAR HGB CONC 30.6 g/dL (31-35); MEAN CORPUSCULAR VOLUME 95.3 fL (81-99); MONOCYTES # (AUTO) 0.6 (0.2-0.8); MONOCYTES % 7.8 % (4.4-11.3); NEUTROPHILS # (AUTO) 5.3 (2.1-6.9); NEUTROPHILS % 69.8 % (38.7-80.0); PLATELET COUNT 211 x10e3/uL (140-360); RED BLOOD COUNT 3.63 x10e6/uL (3.6-5.1)
[2017-03-09] MEDS: INSULIN REGULAR, HUMAN 100 UNIT/1 ML 3ML VIAL SQ SCH ×4 (07:30→20:45)
[2017-03-09 07:50] LABS: ANION GAP 13.6 mmol/L (8-16); CALCIUM 8.5 mg/dL (8.4-10.2); CREATININE, SERUM 1.31 mg/dL (0.57-1.11); POTASSIUM 3.6 mmol/L (3.5-5.1)
--- NOTE | 2017-03-09 07:51 | Diagnostic Imaging Report ---
EXAMINATION: Chest, CHEST SINGLE (PORTABLE) INDICATION: Chest pain COMPARISON: Portable chest 03/08/2017 FINDINGS: LINES: None. Heart: Normal cardiac silhouette. Vascular: The pulmonary vasculature is within normal limits. Atherosclerotic calcifications of the aortic arch. Mediastinum: No mediastinal, hilar, or axillary mass or lymphadenopathy. Lungs: No parenchymal mass. Airspace opacity in the right lung base. Pleura: No pleural effusion. No pneumothorax. Bones: No acute osseous abnormality. Degenerative changes of the thoracic spine. Soft tissues: Normal. Impression: Airspace opacity in the right lung base may represent atelectasis or developing pneumonia. Signed by: Dr. Arcenio Templeton M.D. on 03/09/2017 7:47 AM
[2017-03-09] MEDS: GLIPIZIDE 5 MG TAB PO SCH (07:56)
[2017-03-09] MEDS: METOCLOPRAMIDE HCL 10 MG TAB PO SCH ×2 (07:57→17:49)
[2017-03-09] MEDS: LEVOTHYROXINE SODIUM 100 MCG TAB PO SCH (07:57)
[2017-03-09] MEDS: PANTOPRAZOLE SOD 40 MG TABEC PO SCH ×2 (07:57→17:48)
[2017-03-09] MEDS: TRIMETHOPRIM/SULFAMETHOXAZOLE 160-800 MG TAB PO SCH ×2 (09:50→21:46)
[2017-03-09] MEDS: DOCUSATE SODIUM LIQD 100 MG/10 ML UDC NG SCH ×3 (09:50→17:48)
[2017-03-09] MEDS: SITAGLIPTIN 100 MG TAB PO SCH (09:53)
[2017-03-09] MEDS: CARVEDILOL 12.5 MG TAB PO SCH ×2 (09:53→21:46)
[2017-03-09] MEDS: AMLODIPINE BESYLATE 5 MG TAB PO SCH (09:54)
[2017-03-09] MEDS: OSELTAMIVIR PHOSPHATE 75 MG CAP PO SCH (09:54)
[2017-03-09] MEDS: GABAPENTIN 400 MG CAP PO SCH (09:54)
[2017-03-09] MEDS: VENLAFAXINE HCL 37.5 MG TAB PO SCH (09:54)
[2017-03-09] MEDS: RIVAROXABAN 15 MG TABLET PO SCH (09:54)
[2017-03-09] MEDS: TRAMADOL HCL 50 MG TAB PO PRN ×2 (10:06→17:48)
[2017-03-09] MEDS: COLLAGENASE 5 GM TUBE TP SCH (10:06)
[2017-03-09] MEDS ORDERED: SODIUM CHLORIDE 0.9% 500ML 500 ML IV ONE (11:45)
[2017-03-09] MEDS ORDERED: FUROSEMIDE INJ 10 MG/ML 4 ML VIAL IV ONE ×2 (12:00→18:00)
[2017-03-09] MEDS: CEFTRIAXONE SOD 1 GM VIAL IV SCH (17:43)
[2017-03-09] MEDS: AZITHROMYCIN 500MG/NS 250 ML 250 ML IV SCH (17:43)
[2017-03-10] VITALS (7 sets, daily range): BP systolic 110–132; BP diastolic 53–68
[2017-03-10] MEDS: BENZONATATE 100 MG CAP PO SCH ×4 (00:26→18:20)
[2017-03-10] MEDS: GUAIFENESIN 600MG/DEXTROMETHORPHAN 30MG TABSR PO SCH ×4 (00:26→18:20)
[2017-03-10] MEDS: LEVALBUTEROL HCL SOLN NEBU 0.63 MG/3 ML NEB INH SCH ×6 (02:15→23:05)
[2017-03-10] MEDS: ACETYLCYSTEINE 20% INHAL SOLN 30 ML VIAL INH SCH ×2 (03:30→07:30)
[2017-03-10] MEDS: FUROSEMIDE INJ 10 MG/ML 4 ML VIAL IV SCH ×3 (05:59→22:00)
[2017-03-10] MEDS: INSULIN REGULAR, HUMAN 100 UNIT/1 ML 3ML VIAL SQ SCH ×4 (07:30→21:00)
[2017-03-10 08:47] LABS: BASOPHILS % 0.2 % (0.0-1.0); EOSINOPHILS # (AUTO) 0.2 (0.0-0.4); EOSINOPHILS % 2.1 % (0.0-6.0); HEMATOCRIT 32.8 % (34.2-44.1); LYMPHOCYTES # (AUTO) 1.3 (1.0-3.2); LYMPHOCYTES % 15.8 % (18.0-39.1); MEAN CORPUSCULAR HEMOGLOBIN 29.2 pg (28-32); MEAN CORPUSCULAR HGB CONC 30.5 g/dL (31-35); MEAN CORPUSCULAR VOLUME 95.6 fL (81-99); MONOCYTES # (AUTO) 0.6 (0.2-0.8); MONOCYTES % 7.8 % (4.4-11.3); NEUTROPHILS % 73.7 % (38.7-80.0); PLATELET COUNT 209 x10e3/uL (140-360); RED BLOOD COUNT 3.43 x10e6/uL (3.6-5.1); RED CELL DISTRIBUTION WIDTH 13.1 % (11.7-14.4)
[2017-03-10] MEDS: DOCUSATE SODIUM LIQD 100 MG/10 ML UDC NG SCH ×2 (09:00→18:20)
[2017-03-10 09:14] LABS: ANION GAP 13.4 mmol/L (8-16); CREATININE, SERUM 1.55 mg/dL (0.57-1.11); POTASSIUM 3.4 mmol/L (3.5-5.1)
[2017-03-10] MEDS: GABAPENTIN 400 MG CAP PO SCH (09:30)
[2017-03-10] MEDS: RIVAROXABAN 15 MG TABLET PO SCH (09:30)
[2017-03-10] MEDS: LEVOTHYROXINE SODIUM 100 MCG TAB PO SCH (09:30)
[2017-03-10] MEDS: CARVEDILOL 12.5 MG TAB PO SCH ×2 (09:30→22:00)
[2017-03-10] MEDS: VENLAFAXINE HCL 37.5 MG TAB PO SCH (09:30)
[2017-03-10] MEDS: SITAGLIPTIN 100 MG TAB PO SCH (09:30)
[2017-03-10] MEDS: METOCLOPRAMIDE HCL 10 MG TAB PO SCH ×2 (09:30→18:20)
[2017-03-10] MEDS: TRIMETHOPRIM/SULFAMETHOXAZOLE 160-800 MG TAB PO SCH ×2 (09:30→21:59)
[2017-03-10] MEDS: COLLAGENASE 5 GM TUBE TP SCH (09:30)
[2017-03-10] MEDS: AMLODIPINE BESYLATE 5 MG TAB PO SCH (09:30)
[2017-03-10] MEDS: GLIPIZIDE 5 MG TAB PO SCH (09:30)
[2017-03-10] MEDS: PANTOPRAZOLE SOD 40 MG TABEC PO SCH ×2 (09:30→18:20)
[2017-03-10] MEDS ORDERED: MAGNESIUM SULFATE 2GM/50ML 50 ML IV ONE (10:00)
[2017-03-10] MEDS ORDERED: POTASSIUM CHLORIDE 20 MEQ TAB CR PO ONE (13:00)
[2017-03-10] MEDS: TRAMADOL HCL 50 MG TAB PO PRN (14:15)
[2017-03-10] MEDS: AZITHROMYCIN 500MG/NS 250 ML 250 ML IV SCH (18:19)
[2017-03-10] MEDS: CEFTRIAXONE SOD 1 GM VIAL IV SCH (18:19)
[2017-03-10] MEDS: HYDROCODONE/APAP 7.5MG-325MG 1 EA TAB PO PRN (19:30)
[2017-03-11] VITALS (7 sets, daily range): BP systolic 96–124; BP diastolic 49–68
[2017-03-11] MEDS: BENZONATATE 100 MG CAP PO SCH ×5 (00:23→23:04)
[2017-03-11] MEDS: GUAIFENESIN 600MG/DEXTROMETHORPHAN 30MG TABSR PO SCH ×5 (00:23→23:04)
[2017-03-11] MEDS: LEVALBUTEROL HCL SOLN NEBU 0.63 MG/3 ML NEB INH SCH ×5 (03:30→20:45)
[2017-03-11] MEDS: FUROSEMIDE INJ 10 MG/ML 4 ML VIAL IV SCH ×3 (05:37→21:04)
[2017-03-11 07:25] LABS: BASOPHILS % 0.2 % (0.0-1.0); EOSINOPHILS # (AUTO) 0.2 (0.0-0.4); EOSINOPHILS % 2.4 % (0.0-6.0); HEMATOCRIT 34.6 % (34.2-44.1); HEMOGLOBIN 10.7 g/dL (12.0-16.0); LYMPHOCYTES # (AUTO) 1.4 (1.0-3.2); LYMPHOCYTES % 16.4 % (18.0-39.1); MEAN CORPUSCULAR HEMOGLOBIN 29.5 pg (28-32); MEAN CORPUSCULAR HGB CONC 30.9 g/dL (31-35); MEAN CORPUSCULAR VOLUME 95.3 fL (81-99); MONOCYTES # (AUTO) 0.7 (0.2-0.8); NEUTROPHILS % 72.5 % (38.7-80.0); PLATELET COUNT 218 x10e3/uL (140-360); RED BLOOD COUNT 3.63 x10e6/uL (3.6-5.1); RED CELL DISTRIBUTION WIDTH 13.2 % (11.7-14.4)
[2017-03-11] MEDS: INSULIN REGULAR, HUMAN 100 UNIT/1 ML 3ML VIAL SQ SCH ×4 (07:30→20:44)
--- NOTE | 2017-03-11 07:50 | Progress Note ---
DATE: PCP: Dr. Satish Guzman CONSULTANTS: Dr. Tomas Jimenez CHIEF COMPLAINT: Acute dyspnea, influenza A with upper respiratory infection, cystitis. ALLERGIES: PENICILLIN, NONSTEROIDAL ANTI-INFLAMMATORIES. DIET: ADA diet. SUBJECTIVE: No new issues. Patient's son at bedside. Discussed plan of care with her. Was also given the option of SNF, which she really appreciated. Patient usually stays alone at night, which is probably not good for the patient's condition and age status. Also, discussed Hospice with the patient's son, who was told that his mother is not a candidate for Hospice at this time. OBJECTIVE VITALS: Temperature 98.2, pulse 76, blood pressure 125/60, respirations 18, satting 93%, weight 235, BMI 37.92. GENERAL: Patient is awake and alert. LUNGS: Crackles and occasional scattered wheezes. HEENT: Extraocular muscles are intact. She is hard of hearing. Sclerae is anicteric. NECK: Supple. Trachea midline. CARDIOVASCULAR: Regular rate and rhythm. ABDOMEN: Soft. Bowel sounds present. It is nontender and nondistended. Patient is obese. NEUROLOGIC: Nonfocal. EXTREMITIES: No calf tenderness. No edema. MEDICATIONS: Please see MAR. LABS: Sodium 142, potassium 3.4 and slightly low, chloride 91, CO2 41, BUN 19, creatinine 1.55, glucose 72. White count 8.12, hemoglobin 10, hematocrit 32.8, and platelets 209,000. Magnesium 1 and that was repleted by Dr. Amadeo Rg. DIAGNOSES 1. Weakness: Will continue with physical therapy and occupational therapy. Will get case management to consult for SNF, possibly the [facility] at family request. 2. Upper respiratory infection: Positive flu per previous provider seen from our group. Tamiflu has been completed. Will continue on pulmonary toilette, as well as with antibiotics. 3. Diabetic foot ulcer, left foot: Podiatry is following. 4. Per nurse, the patient has a sacral ulcer, stage 2: Will consult wound care. Patient has a Mtz catheter. She will continue with a Mtz catheter for now. 5. Hypertension with congestive heart failure and chronic kidney disease, stage 3: Creatinine today is 1.55. Will continue to monitor creatinine. 6. Diabetes mellitus, type 2 with chronic kidney disease, stage 3: Patient is on sliding scale. She will continue on sliding scale. Glucose is stable. DICTATED BY JIMY ROMANO NP Job#: [id number] RI
[2017-03-11 07:53] LABS: ANION GAP 15.7 mmol/L (8-16); CALCIUM 8.5 mg/dL (8.4-10.2); CREATININE, SERUM 1.74 mg/dL (0.57-1.11); POTASSIUM 3.7 mmol/L (3.5-5.1)
[2017-03-11 09:02] LABS: MAGNESIUM 1.5 MG/DL (1.3-2.1); PHOSPHORUS 3.5 MG/DL (2.3-4.7)
[2017-03-11] MEDS ORDERED: SODIUM CHLORIDE 0.9% 1000ML 1,000 ML IV SCH (09:15)
[2017-03-11] MEDS: TRIMETHOPRIM/SULFAMETHOXAZOLE 160-800 MG TAB PO SCH ×2 (09:43→20:43)
[2017-03-11] MEDS: DOCUSATE SODIUM LIQD 100 MG/10 ML UDC NG SCH ×2 (09:43→16:56)
[2017-03-11] MEDS: CARVEDILOL 12.5 MG TAB PO SCH ×2 (09:43→20:44)
[2017-03-11] MEDS: GABAPENTIN 400 MG CAP PO SCH (09:43)
[2017-03-11] MEDS: METOCLOPRAMIDE HCL 10 MG TAB PO SCH ×2 (09:43→16:56)
[2017-03-11] MEDS: LEVOTHYROXINE SODIUM 100 MCG TAB PO SCH (09:43)
[2017-03-11] MEDS: RIVAROXABAN 15 MG TABLET PO SCH (09:43)
[2017-03-11] MEDS: GLIPIZIDE 5 MG TAB PO SCH (09:43)
[2017-03-11] MEDS: SITAGLIPTIN 100 MG TAB PO SCH (09:43)
[2017-03-11] MEDS: AMLODIPINE BESYLATE 5 MG TAB PO SCH (09:43)
[2017-03-11] MEDS: VENLAFAXINE HCL 37.5 MG TAB PO SCH (09:43)
[2017-03-11] MEDS: PANTOPRAZOLE SOD 40 MG TABEC PO SCH ×2 (09:43→16:56)
[2017-03-11] MEDS: COLLAGENASE 5 GM TUBE TP SCH (10:26)
--- NOTE | 2017-03-11 10:41 | Progress Note ---
DATE: March 10, 2017 SUBJECTIVE: Patient seen at bedside accompanied by son. Doing well. Decreased pain to both lower extremities. OBJECTIVE: Vitals: Afebrile. Vital signs stable. Ulcerations to both lower extremities continue to improve. Decreased cellulitis. Decreased drainage. ASSESSMENT: Multiple grade-2 ulcers, healing, both lower extremities, with diabetic neuropathy. PLAN: Continue local wound care. Continue offloading. Continue antibiotics. Will continue to follow. Job#: [id number]
[2017-03-11] MEDS: ACETYLCYSTEINE 20% INHAL SOLN 30 ML VIAL INH SCH ×3 (11:00→20:45)
[2017-03-11] MEDS: TRAMADOL HCL 50 MG TAB PO PRN ×2 (11:42→23:00)
[2017-03-11] MEDS: CEFTRIAXONE SOD 1 GM VIAL IV SCH (14:28)
--- NOTE | 2017-03-11 15:30 | Progress Note ---
DATE: March 11, 2017 SUBJECTIVE: Patient seen at bedside with daughter. Decreased pain to both lower extremities. OBJECTIVE VITAL SIGNS: Afebrile. Vital signs stable. EXTREMITIES: Ulceration to the left heel shows some necrosis going down to subcutaneous tissue possibly some muscle, measuring 2.5 to 3 cm in diameter. Ulceration to lateral aspect of right ankle joint healing less than 1.5 cm in diameter with no bone or tendon exposed. Ulceration to the lateral aspect of 5th MPJ also getting better. Pedal pulses are diminished, but skin temperature warm to touch. LABORATORY DATA: Labs noted, has a white blood cell count 8.24, hemoglobin 10.7, and hematocrit 34.6 with a platelet count of 218. ASSESSMENT: Diabetic neuropathy, grade 2/3 ulceration, left heel; grade 2 ulcer, right ankle with a grade 1/2 ulceration lateral aspect fifth metatarsophalangeal joint. PLAN: We will continue offloading, continue planned prescribed medications. Ulcerations to both legs will be debrided. Patient may be transferred to [facility]. We will continue local wound care and IV antibiotics and continue to follow. Job#: [id number] SAK
--- NOTE | 2017-03-11 15:39 | Consultation ---
DATE OF CONSULTATION: March 11, 2017 UROLOGY CONSULTATION REASON FOR CONSULTATION: Urinary retention for 500 mL. HISTORY OF PRESENT ILLNESS: Cheyanne Tobar is an 86-year-old woman who has never seen a urologist before. The patient is currently admitted following flu with multiple medical problems and a Mtz catheter was placed revealing 500 mL of retention and urological consultation was sought. The patient is not sure if it is a true postvoid residual and is not sure if she voided immediately prior to the placement of the Mtz catheter. The patient denies any previous urological surgery. She did not have a cystocele repair in conjunction with her hysterectomy. PAST MEDICAL AND SURGICAL HISTORY 1. Hypertension. 2. Type 2 diabetes mellitus. 3. Chronic atrial fibrillation. 4. Chronic systolic heart failure. 5. Chronic renal insufficiency. 6. Asthma/COPD. 7. Status post cholecystectomy. 8. Status post total vaginal hysterectomy with rectocele repair. FAMILY HISTORY: Significant for kidney cancer in the patient's brother who had a nephrectomy for that disease. It is otherwise remarkable for hypertension and diabetes. SOCIAL HISTORY: The patient denies smoking, alcohol, or drug use. She is a retired nurse. For functionality, she utilizes a motorized wheelchair. She has supportive family at the bedside. CURRENT MEDICATIONS: Please refer to the MAR. ALLERGIES: PLEASE REFER TO THE MAR. REVIEW OF SYSTEMS: As discussed above in the history of present illness and past medical history, otherwise negative for all other systems. PHYSICAL EXAMINATION GENERAL: Somewhat debilitated-appearing elderly woman, lying in bed, in no apparent distress. She is hard of hearing. VITAL SIGNS: She is currently afebrile. Vital signs are currently stable. ABDOMEN: Soft, nondistended, and nontender, without costovertebral angle tenderness. Kidneys not palpable without hepatosplenomegaly. The patient is obese. GENITOURINARY: The patient has a Mtz catheter in place that is draining clear urine out. No evidence of any hematuria at the present time. For the remainder of the physical examination systems, please refer to the admission history and physical on the chart. LABORATORY STUDIES: Urine culture is positive on 3 different occasions within this hospitalization and current urine culture is pending. Hemoglobin is low at 10.7, platelets are normal at 218,000, white blood cell count is normal as well. Creatinine is 1.74. The patient's magnesium and potassium are now normal, but they were both low earlier in this hospitalization as well as the calcium, which has also been normalized. Urinalysis is significant for pyuria and microscopic hematuria. ASSESSMENT 1. Urinary retention. 2. Mtz catheter in place. 3. Urinary tract infections. 4. Anemia. 5. Chronic renal insufficiency. 6. Hypomagnesemia that is improved. 7. Hypocalcemia that is improved. 8. Hypokalemia that is improved. 9. Family history of kidney cancer. 10. Morbid obesity. 11. Microscopic hematuria. PLAN Leave the Mtz catheter in place for now. Agree with sending the patient to the long-term acute care hospital for rehabilitation and improvement of functional status. Ongoing urological followup is a must once the patient is more functional. Hopefully, she will be more functional enough in order to undergo urodynamic study in the office as an outpatient. Interventionally, cystoscopic examination is warranted. Thank you very much for involving us in the care of your patient. I will be happy to follow her along with you as well as in outpatient. Job#: [id number] SAK cc:Dr. Satish Guzman
[2017-03-12] VITALS (8 sets, daily range): BP systolic 111–149; BP diastolic 57–78
[2017-03-12] MEDS: ACETYLCYSTEINE 20% INHAL SOLN 30 ML VIAL INH SCH ×6 (00:30→21:00)
[2017-03-12] MEDS: LEVALBUTEROL HCL SOLN NEBU 0.63 MG/3 ML NEB INH SCH ×6 (00:30→21:00)
[2017-03-12] MEDS: GUAIFENESIN 600MG/DEXTROMETHORPHAN 30MG TABSR PO SCH ×3 (05:27→18:10)
[2017-03-12] MEDS: BENZONATATE 100 MG CAP PO SCH ×3 (05:27→18:10)
[2017-03-12] MEDS: FUROSEMIDE INJ 10 MG/ML 4 ML VIAL IV SCH ×3 (05:27→21:57)
[2017-03-12 07:27] LABS: BASOPHILS % 0.4 % (0.0-1.0); EOSINOPHILS # (AUTO) 0.2 (0.0-0.4); EOSINOPHILS % 3.3 % (0.0-6.0); HEMATOCRIT 32.2 % (34.2-44.1); LYMPHOCYTES # (AUTO) 1.4 (1.0-3.2); LYMPHOCYTES % 18.9 % (18.0-39.1); MEAN CORPUSCULAR HEMOGLOBIN 29.3 pg (28-32); MEAN CORPUSCULAR HGB CONC 31.1 g/dL (31-35); MEAN CORPUSCULAR VOLUME 94.4 fL (81-99); MONOCYTES # (AUTO) 0.6 (0.2-0.8); MONOCYTES % 7.9 % (4.4-11.3); NEUTROPHILS % 68.9 % (38.7-80.0); PLATELET COUNT 241 x10e3/uL (140-360); RED BLOOD COUNT 3.41 x10e6/uL (3.6-5.1)
[2017-03-12] MEDS: INSULIN REGULAR, HUMAN 100 UNIT/1 ML 3ML VIAL SQ SCH ×4 (07:30→21:00)
[2017-03-12 07:57] LABS: ANION GAP 14.9 mmol/L (8-16); CREATININE, SERUM 1.77 mg/dL (0.57-1.11); POTASSIUM 3.9 mmol/L (3.5-5.1)
[2017-03-12] MEDS: RIVAROXABAN 15 MG TABLET PO SCH (09:00)
[2017-03-12] MEDS: GLIPIZIDE 5 MG TAB PO SCH (09:00)
[2017-03-12] MEDS: DOCUSATE SODIUM LIQD 100 MG/10 ML UDC NG SCH ×2 (09:00→17:35)
[2017-03-12] MEDS: AMLODIPINE BESYLATE 5 MG TAB PO SCH (09:00)
[2017-03-12] MEDS: SITAGLIPTIN 100 MG TAB PO SCH (09:00)
[2017-03-12] MEDS: METOCLOPRAMIDE HCL 10 MG TAB PO SCH ×2 (09:00→17:35)
[2017-03-12] MEDS: LEVOTHYROXINE SODIUM 100 MCG TAB PO SCH (09:00)
[2017-03-12] MEDS: VENLAFAXINE HCL 37.5 MG TAB PO SCH (09:00)
[2017-03-12] MEDS: GABAPENTIN 400 MG CAP PO SCH (09:00)
[2017-03-12] MEDS: TRIMETHOPRIM/SULFAMETHOXAZOLE 160-800 MG TAB PO SCH (09:00)
[2017-03-12] MEDS: PANTOPRAZOLE SOD 40 MG TABEC PO SCH ×2 (09:00→17:35)
[2017-03-12] MEDS: CARVEDILOL 12.5 MG TAB PO SCH ×2 (09:01→21:57)
[2017-03-12] MEDS: COLLAGENASE 5 GM TUBE TP SCH (10:49)
--- NOTE | 2017-03-12 15:41 | Consultation ---
DATE OF CONSULTATION: REASON FOR CONSULTATION: Recommendation for antibiotic in a patient with UTI, influenza and multiple wounds. HISTORY OF PRESENT ILLNESS: This is an 86-year-old white female who has history of hypertension, diabetes mellitus, atrial fibrillation, congestive heart failure, obesity, chronic kidney disease. History of cholecystectomy. ALLERGIES: PENICILLIN AND NSAID. The patient comes into the hospital with shortness of breath and cough. Apparently she was recently in rehab and then went to SNF. The patient is coming with fever, cough, shortness of breath, not feeling well. The patient came here. She was found to have influenza A. She was treated. The patient was also found to have multiple wounds, also UTI. The patient is extremely weak. The patient received azithromycin, Tamiflu and Rocephin for 5 days. They plan for her to go to [facility]. Infectious disease was consulted today to make recommendation in terms of antibiotic. Patient has been seen by Dr. Jimenez. She has multiple stage-I and stage-II ulcers on both lower extremities, which she has been getting local care for it by Dr. Jimenez. She was also diagnosed with UTI. PAST MEDICAL HISTORY: As mentioned above, hypertension, diabetes mellitus, neuropathy, chronic atrial fibrillation, congestive heart failure systolic, chronic kidney disease stage 2 to 3, COPD, cholecystectomy, vaginal hysterectomy, rectocele repair. SOCIAL HISTORY: There is no smoking, drug abuse or alcohol abuse. FAMILY HISTORY: Significant for kidney cancer and hypertension. REVIEW OF SYSTEMS GENERAL: Patient has difficulty hearing. She also cannot see well. HEENT: There is no headache or visual changes. GI: No nausea, vomiting, or diarrhea. CARDIAC: No arrhythmia. NEURO: No seizure activity. SKIN: There is no rash. The patient has been on Lasix, Tessalon Perles, Mucinex, Santyl, Coreg, Bactrim DS, Effexor, Neurontin. She was just started on Rocephin. CULTURES: From the urine, she grew Citrobacter, which was resistant to ampicillin and cephalosporin 1st and 2nd generation and 3rd generation. LABS: Sodium 140, potassium 3.9, creatinine 1.77. Her white count is 7.25 and hemoglobin 10. PHYSICAL EXAMINATION GENERAL: She is currently alert and oriented. Does not seem to be in acute distress. VITALS: Stable, currently afebrile. HEENT: She is not icteric. Normocephalic. NECK: Supple. No JVD. No lymphadenopathy. No thyromegaly. CHEST: Clear bilaterally. COR: S1 and S2. No murmur. ABDOMEN: Soft. Bowel sounds present. EXTREMITIES: No edema. She has multiple wounds, old, described in wound care notes. IMPRESSION: Urinary tract infection. Seems to be getting better. Multidrug resistant pathogen. I would suggest to change to meropenem, especially since the patient has chronic kidney disease. Will do meropenem 500 IV q.12 h. Plan on 10 days. Okay to go to LTAC. I am aware of her penicillin allergies. She did well with ceftriaxone. Will follow with you. Job#: [id number]
--- NOTE | 2017-03-12 19:39 | Progress Note ---
DATE: March 12, 2017 SUBJECTIVE: Patient seen at bedside accompanied by [id number], doing better, decreased pain to both lower extremities. VITAL SIGNS: Afebrile. Vital signs stable. O2 saturation 100%. LABORATORY DATA: White blood cell count 7.5. Hemoglobin 10.0, hematocrit 32.2 with a platelet count of 241,000. Ulcerations continues to improve. Necrosis to the left heel down the subcutaneous tissue possibly muscle. No evidence of any type of bone exposure measuring more than 2.5 cm in diameter with ulcerations to the forefoot aspect of the left foot better and also to the right ankle joint getting better. ASSESSMENT: Diabetic neuropathy with grade II./III ulceration left heel, grade 2 ulcer right ankle, grade 1 ulcer left 5th MPJ. PLAN: Will need to continue IV antibiotics and local wound care. Ulceration will be debrided at [place] once he gets transferred. Continue offloading. Will continue to follow. Job#: [id number]
[2017-03-12] MEDS: TRAMADOL HCL 50 MG TAB PO PRN (19:47)
[2017-03-12] MEDS ORDERED: MEROPENEM 500MG 500 MG in SODIUM CHLORIDE 0.9% 50ML 50 ML IV SCH (21:00)
[2017-03-12] MEDS ORDERED: MEROPENEM 500 MG VIAL ONE (21:31)
--- NOTE | 2017-03-13 11:56 | Discharge Summary ---
ADMITTING DIAGNOSES 1. Generalized weakness. 2. Influenza. 3. Upper respiratory infection. 4. Diabetic foot ulcers, bilateral feet. 5. Hypertension. 6. Coronary artery disease. 7. Type-2diabetes. 8. Chronic atrial fibrillation. DISCHARGE DIAGNOSES 1. Generalized weakness. 2. Influenza. 3. Upper respiratory infection. 4. Diabetic foot ulcers, bilateral feet. 5. Hypertension. 6. Coronary artery disease. 7. Type-2diabetes. 8. Chronic atrial fibrillation. HISTORY: The patient has a history of hypertension, type-2 diabetes, chronic AFib, chronic systolic heart failure, CKD 3, asthma, COPD. Surgical history of cholecystectomy. HOSPITAL COURSE: This 86-year-old female presented with increasing shortness of breath over the last couple of days. She was discharged from a nursing home facility just 2 days ago after being there for 30 days. Her generalized weakness was addressed with PT and OT, who started soon so that she would not lose any ground. For the flu, the patient was started on Tamiflu 75 mg twice a day for 5 days. She was also given Zithromax and Rocephin nebulizers and Mucinex. Podiatry was consulted for the foot ulcers and wound care per podiatry, who ordered Bactroban ointment followed by Xeroform dressing and pillow under cast to offload as best as possible. For type-2 diabetes and CKD 3, the patient was continued on her Januvia and sliding-scale insulin. Renal labs were monitored and IV fluids given as needed. The patient continued her Coreg and Xarelto for her chronic AFib. On admission, chest x-ray showed cardiomegaly and pulmonary artery enlargement suggestive of pulmonary artery hypertension. No pulmonary infiltrates. On the , a repeat chest x-ray was done that showed air space opacity in the right lung base that may represent atelectasis or developing pneumonia. The patient's urine culture found Citrobacter sensitive to Bactrim. After a few days of the Bactrim, the urine was retested and still found to be dirty, so the patient was switched to Merrem per ID. Sputum culture was negative. The patient was transferred to [facility] per family's request to get her strength back up. The patient was found to have fecal occult blood positive. As per the family, they do not want an EGD or colonoscopy to investigate. The patient was transferred to [place] for PT, OT and wound care. Dictated by: Shikha Miranda, PROFESSOR OF ART HISTORY ERNESTO MRUPHY MD Job#: [id number]
== END 2017-03-12 21:53 | DRG 194 ==
LOC: ER 11:04 → ERHOLD 16:20 → IMCU 17:06 → OBSVTOIN 03-05 15:41 → IMCU 03-06 23:41 → MED/SURG 03-09 18:00
PROVIDERS: ADMIT Internal Medicine; ATTEND Internal Medicine
DX: J10.1 Influenza due to other identified influenza virus with other respiratory manifestations (principal); I13.0 Hypertensive heart and chronic kidney disease with heart failure and stage 1 through stage 4 chronic kidney disease, or unspecified chronic kidney disease; L89.152 Pressure ulcer of sacral region, stage 2; E11.22 Type 2 diabetes mellitus with diabetic chronic kidney disease; I50.22 Chronic systolic (congestive) heart failure; E11.42 Type 2 diabetes mellitus with diabetic polyneuropathy; N39.0 Urinary tract infection, site not specified; L97.429 Non-pressure chronic ulcer of left heel and midfoot with unspecified severity; N18.3 Chronic kidney disease, stage 3 (moderate); B96.89 Other specified bacterial agents as the cause of diseases classified elsewhere; Z16.24 Resistance to multiple antibiotics; I48.2 Chronic atrial fibrillation; Z79.01 Long term (current) use of anticoagulants; E03.9 Hypothyroidism, unspecified; F32.9 Major depressive disorder, single episode, unspecified; E78.5 Hyperlipidemia, unspecified; J44.9 Chronic obstructive pulmonary disease, unspecified; E11.621 Type 2 diabetes mellitus with foot ulcer; L97.519 Non-pressure chronic ulcer of other part of right foot with unspecified severity; L97.521 Non-pressure chronic ulcer of other part of left foot limited to breakdown of skin; E83.42 Hypomagnesemia; E83.51 Hypocalcemia; E87.6 Hypokalemia; R33.9 Retention of urine, unspecified; E66.01 Morbid (severe) obesity due to excess calories; Z68.37 Body mass index [BMI] 37.0-37.9, adult; Z88.0 Allergy status to penicillin; Z88.6 Allergy status to analgesic agent
CPT/HCPCS: 36415; 71010; 80048; 80053; 81001; 82140; 82270; 82948; 83735; 83880; 84100; 84443; 85025; 85610; 85730; 87070; 87086; 87186; 87205; 87400; 93005; 93306; 94640; 97139; 97602; 99284; G0378; J0456; J0696; J1940; J2185; J2270; J2405; J7030; J7040; J7070; J7799

== ENCOUNTER 2017-03-25 14:14 | Emergency (ER) | payer MEDICARE, BC ==
[~2017-03-25] VITALS: Ht 167.6 cm; Wt 106.6 kg
[~2017-03-25 14:14] MED LIST: AMLODIPINE BESYL5 MG PO; CARVEDILOL12.5 MG PO; COMBIVENT RESPIM4 GM IH; CYCLOBENZAPRINE10 MG PO; DOXAZOSIN MESYLA2 MG PO; ENULOSE10 GM/15 M; FUROSEMIDE40 MG PO; GABAPENTIN400 MG PO; GLIPIZIDE5 MG PO; JANUVIA100 MG PO; LEVOTHYROXINE100 MCG PO; NORCO 7.5-3251 EACH PO; NYSTATIN1 EAC1; VENLAFAXINE H37.5 MG PO; XARELTO10 MG PO
[2017-03-25] MEDS ORDERED: IPRATROPIUM BROMIDE 0.02% 2.5 ML NEB NEB STA (15:27)
[2017-03-25] MEDS ORDERED: ALBUTEROL SULF 0.083% NEB SOLN 3 ML NEB NEB STA (15:27)
[2017-03-25] MEDS ORDERED: METHYLPREDNISOLONE SOD SUCC 125 MG/2ML VIAL IV STA (15:27)
--- NOTE | 2017-03-25 16:34 | Diagnostic Imaging Report ---
PROCEDURE: A single AP view of the chest. COMPARISON: 03/09/17 INDICATIONS: COUGH, SHORTNESS OF BREATH FINDINGS: Limited by body habitus and shallow inspiration. Lines/tubes: None. Lungs: Central vascular congestion and mild interstitial edema. Left base opacification. Pleura: There is no pneumothorax. Heart and mediastinum: The cardiac silhouette is enlarged. Bones: No acute bony abnormality. IMPRESSION: Central vascular congestion and mild interstitial edema. Left basilar opacification, representing small pleural effusion and/or pneumonia. Possible trace right pleural effusion. Enlarged cardiac silhouette. Dictated by: Hermann Bedoya M.D. on 03/25/2017 at 16:43 Electronically approved by: Hermann Bedoya M.D. on 03/25/2017 at 16:43
[2017-03-25] MEDS ORDERED: LEVOFLOXACIN 750MG/D5W 150ML 150 ML IV ONE (17:30)
[2017-03-25] MEDS ORDERED: LEVOFLOXACIN 500 MG TAB PO ONE (18:00)
[2017-03-25] MEDS ORDERED: VANCOMYCIN 1GM/NS 250 ML 250 ML IV SCH (18:00)
[2017-03-25] MEDS ORDERED: LEVAQUIN500 MG PO (18:10)
== END 2017-03-25 19:26 | disposition home or self-care (01) ==
LOC: ER 14:14
DX: R06.09 Other forms of dyspnea (principal); R09.02 Hypoxemia; R05 Cough; J18.9 Pneumonia, unspecified organism; R60.9 Edema, unspecified; I10 Essential (primary) hypertension; E11.9 Type 2 diabetes mellitus without complications; I50.9 Heart failure, unspecified; Z99.81 Dependence on supplemental oxygen
CPT/HCPCS: 71045; 93005; 99284

== ENCOUNTER 2017-04-06 11:05 | Emergency (ER) | payer MEDICARE, BC ==
[~2017-04-06] VITALS: Ht 167.6 cm; Wt 107.5 kg
[~2017-04-06 11:05] MED LIST changes: +LEVAQUIN500 MG PO
--- OUTSIDE RECORDS SUMMARY | 2017-04-06 11:07 | XMS REPORT ---
Author Author [facility] Address Unknown Phone Unavailable Care Team Providers Care Traditional Chinese Herbalist Name Role Phone PATTY SAEED Unavailable Unavailable ERNESTO MURPHY Unavailable Unavailable Problems This patient has no known problems. Allergies, Adverse Reactions, Alerts This patient has no known allergies or adverse reactions. Medications This patient has no known medications. Results Test Description Test Time Test Comments Text Results Atomic Results Result Comments CHEST SINGLE (PORTABLE) [place] [address] Patient Name: TOBI ROBERTS MR #: [id number] : 1930 Age/Sex: 86/F Req #: [id number] Adm Physician: Ordered by: PATTY SAEED MD Report #: [id number] Location: ER Room/Bed: Procedure: [id number] DX/CHEST SINGLE (PORTABLE) Exam Date: 03/25/17 Exam Time: 1600 REPORT STATUS: Signed PROCEDURE: A single AP view of the chest. COMPARISON: 03/09/17 INDICATIONS: COUGH, SHORTNESS OF BREATH FINDINGS: Limited by body habitus and shallow inspiration. Lines/tubes: None. Lungs: Central vascular congestion and mild interstitial edema. Left base opacification. Pleura: There is no pneumothorax. Heart and mediastinum: The cardiac silhouette is enlarged. Bones: No acute bony abnormality. IMPRESSION: Central vascular congestion and mild interstitial edema. Left basilar opacification, representing small pleural effusion and/or pneumonia. Possible trace right pleural effusion. Enlarged cardiac silhouette. Dictated by: Hermann Heredia M.D. on 03/25/2017 at 16:43 Electronically approved by: Hermann Heredia M.D. on 03/25/2017 at 16:43 Dictated By: HERMANN HEREDIA MD 42 Transcribed By: OLIMPIA on 03/25/171642 COPY TO: PATTY SAEED MD CHEST SINGLE (PORTABLE) [place] [address] Patient Name: TOBI ROBERTS MR #: [id number] : 1930 Age/Sex: 86/F Req #: [id number] Adm Physician: ERNESTO MURPHY MD Ordered by: Shikha Block RECRUITING INTERN Report #: [id number] Location: [facility] Room/Bed: [place] [address] Procedure: [id number] DX/CHEST SINGLE (PORTABLE) Exam Date: Exam Time: REPORT STATUS: Signed EXAMINATION: Chest, CHEST SINGLE (PORTABLE) INDICATION: Chest pain COMPARISON : Portable chest 03/08/2017 FINDINGS: LINES: None. Heart : Normal cardiac silhouette. Vascular: The pulmonary vasculature is within normal limits. Atherosclerotic calcifications of the aortic arch. Mediastinum: No mediastinal, hilar, or axillary mass or lymphadenopathy. Lungs: No parenchymal mass. Airspace opacity in the right lung base. Pleura: No pleural effusion. No pneumothorax. Bones: No acute osseous abnormality. Degenerative changes of the thoracic spine. Soft tissues: Normal. Impression: Airspace opacity in the right lung base may represent atelectasis or developing pneumonia. Signed by: Dr. Kori Kolb M.D. on 03/09/2017 7:47 AM Dictated By: KORI KOLB MD 6 Transcribed By: SPENCER on 03/09/17746 COPY TO: SHIKHA BLOCK NP CHEST SINGLE (PORTABLE) [place] [address] Patient Name: TOBI ROBERTS MR #: [id number] : 1930 Age/Sex: 86/F Req #: [id number] Adm Physician: ERNESTO MURPHY MD Ordered by: Shikha Block RECRUITING INTERN Report #: [id number] Location: [facility] Room/Bed: [place] [address] Procedure: [id number] DX/CHEST SINGLE (PORTABLE) Exam Date: 03/08/17 Exam Time: 1305 REPORT STATUS: Signed PROCEDURE: A single AP view of the chest. COMPARISON: Chest x-ray and 03/04/2017 INDICATIONS: UPPER RESPIRATORY INFECTION FINDINGS: Frontal image obtained at 1304 hrs. Lines/tubes: None. Lungs: Lung volumes are low. There is a small focus of subsegmental atelectasis or infiltrate inferior right upper lobe. This is stable compared to the most recent prior exam. Crowding of the lung markings in the left lung bases suggestive of atelectasis. Pulmonary vascular markings are prominent but stable. Pleura: There is no pleural effusion or pneumothorax. Heart and mediastinum: Stable cardiomegaly and pulmonary artery enlargement. There is suggestion of calcified hilar lymph nodes. Bones: No acute bony abnormality. IMPRESSION: Inferior right upper lobe subsegmental atelectasis or infiltrate is stable. Stable cardiomegaly. Dictated by: German Trammell M.D. on 03/08/2017 at 14: 38 Electronically approved by: German Trammell M.D. on 03/08/2017 at 14:38 Dictated By: GERMAN TRAMMELL MD 1438 Transcribed By: OLIMPIA on 03/08/17 1438 COPY TO: SHIKHA BLOCK NP CHEST SINGLE (PORTABLE) [place] [address] Patient Name: TOBI ROBERTS MR #: [id number] : 1930 Age/Sex: 86/F Req #: [id number] Adm Physician: ERNESTO MURPHY MD Ordered by: Shikha Block RECRUITING INTERN Report #: [id number] Location: [facility] Room/Bed: [place] [address] Procedure: [id number] DX/CHEST SINGLE (PORTABLE) Exam Date: 03/07/17 Exam Time: 1345 REPORT STATUS: Signed PROCEDURE: CHEST SINGLE (PORTABLE) COMPARISON: 03/04/2017. INDICATIONS: INFLUENZA, RESPIRATORY DISTRESS FINDINGS: Lungs remain well- inflated and without focal consolidation, pleural effusion, or pneumothorax. Stable cardiomediastinal contour with mild enlargement of the cardiac silhouette and central pulmonary arteries. No acute osseous abnormality. CONCLUSION: Stable cardiomegaly with enlargement of the central pulmonary arteries. No new consolidations. Dictated by: Rachel Shelton M.D. on 03/07/2017 at 14:18 Electronically approved by: Rachel Shelton M.D. on 03/07/2017 at 14:18 Dictated By: RACHEL SHELTON MD 1418 Transcribed By: OLIMPIA on 03/07/17 1418 COPY TO: SHIKHA BLOCK NP CHEST SINGLE (PORTABLE) [place] [address] Patient Name: TOBI ROBERTS MR #: [id number] : 1930 Age/Sex: 86/F Req #: [id number] Adm Physician: Ordered by: GUILHERME FERMIN MD Report # : [id number] Location: ER Room/Bed: Procedure: [id number] DX/CHEST SINGLE (PORTABLE) Exam Date: 03/04/17 Exam Time: 1415 REPORT STATUS: Signed Portable chest x-ray CPT code 68432 INDICATION: Cough, fever COMPARISON: None FINDINGS: Frontal view of the chest obtained at 1350 hours. The cardiac silhouette is enlarged. The pulmonary arteries are enlarged. The central pulmonary vascular marking are prominent. The lungs demonstrate no mass or infiltrate. There is eventration of the right diaphragm. The costophrenic angles are sharp. There is no pneumothorax. The osseous structures are intact and normal in morphology. IMPRESSION: 1. Cardiomegaly and pulmonary artery enlargement suggestive of pulmonary artery hypertension. 2. No pulmonary infiltrates. 3. 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 Signed by: Dr. German Trammell MD on 03/04/2017 2:42 PM Dictated By: GERMAN TRAMMELL MD 1442 Transcribed By: SPENCER on 03/21 1442 COPY TO: GUILHERME FERMIN MD
[2017-04-06] MEDS ORDERED: DOXYCYCLINE HY100 MG PO (11:30)
[2017-04-06] MEDS ORDERED: HYDROCODONE/APAP 7.5MG-325MG 1 EA TAB PO PRN (11:45)
--- NOTE | 2017-04-06 13:00 | Diagnostic Imaging Report ---
Right shoulder - 2 views HISTORY: Pain. COMPARISON: None available. FINDINGS: Bones: No acute displaced fracture. No expansile lytic or sclerotic lesion. Joints: The joint spaces are well-maintained. No dislocation. Soft tissues: The soft tissues appear unremarkable. IMPRESSION: No acute radiographic abnormality. Signed by: Dr. Arcenio Templeton M.D. on 04/06/2017 12:56 PM
--- NOTE | 2017-04-06 13:02 | Diagnostic Imaging Report ---
Pelvis, 1 view - hips, bilateral 2 views HISTORY: Pain. COMPARISON: None available. FINDINGS: Bones: No acute displaced fracture. No expansile lytic or sclerotic lesion. Joints: Degenerative changes are present in the hips bilaterally, more severe on the right. Degenerative changes are evidenced by joint space narrowing, subchondral sclerosis, and marginal osteophytosis. No dislocation. Soft tissues: The soft tissues appear unremarkable. IMPRESSION: No acute radiographic abnormality. Bilateral degenerative changes of the hips. Signed by: Dr. Arcenio Templeton M.D. on 04/06/2017 12:58 PM
--- NOTE | 2017-04-06 13:03 | Diagnostic Imaging Report ---
EXAMINATION: Chest, CHEST 2 VIEWS INDICATION: Chest pain COMPARISON: Portable chest 03/25/2017 FINDINGS: LINES: None. Heart: Normal cardiac silhouette. Vascular: The pulmonary vasculature is within normal limits. Atherosclerotic calcifications of the aortic arch. Mediastinum: No mediastinal, hilar, or axillary mass or lymphadenopathy. Lungs: No parenchymal mass. No focal consolidation. Low lung volumes are present bilaterally. Pleura: No pleural effusion. No pneumothorax. Bones: No acute osseous abnormality. Degenerative changes of the thoracic spine. Soft tissues: Normal. Impression: No acute radiographic abnormality. Signed by: Dr. Arcenio Templeton M.D. on 04/06/2017 12:59 PM
[2017-04-06 14:46] VITALS: BP 107/49
== END 2017-04-06 14:50 | disposition home or self-care (01) ==
LOC: ER 11:05
DX: S20.211A Contusion of right front wall of thorax, initial encounter (principal); S40.011A Contusion of right shoulder, initial encounter; S70.01XA Contusion of right hip, initial encounter; W18.11XA Fall from or off toilet without subsequent striking against object, initial encounter; Y92.002 Bathroom of unspecified non-institutional (private) residence as the place of occurrence of the external cause; I10 Essential (primary) hypertension; E11.9 Type 2 diabetes mellitus without complications; I51.9 Heart disease, unspecified
CPT/HCPCS: 71046; 99284